=== PATIENT | male | born 1980 | race Caucasian/White ===

== ENCOUNTER 2020-04-05 18:57 | Emergency (ER) | payer OTHER, SELFPAY ==
[2020-04-05 19:13] VITALS: BP 143/83; PULSE 104; RESP 14; TEMP 36.1; O2SAT 98; BMI 40.6
--- NOTE | 2020-04-05 20:05 | XR_ITS ---
WS: [id number] LEFT ELBOW: 3 VIEW(S) TECHNIQUE: AP, oblique and lateral. HISTORY: Injury COMPARISON: None available. No acute fractures or dislocation. Enthesopathy at the Achilles tendon. No joint effusion. No soft tissue abnormality. XR/XR elbow LT min 3V* [id number] IMPRESSION: Normal LEFT elbow.
--- NOTE | 2020-04-05 20:05 | XR_ITS ---
WS: [id number] LEFT HUMERUS: 2 VIEW(S) TECHNIQUE: AP and lateral. HISTORY: Injury COMPARISON: None available. No acute fracture or dislocation. No joint or soft tissue abnormality. No foreign bodies and visualized upper thorax is unremarkable. XR/[place] [id number] IMPRESSION: Normal LEFT humerus.
--- NOTE | 2020-04-05 20:05 | XR_ITS ---
WS: [id number] LEFT SHOULDER: 3 VIEW(S) TECHNIQUE: Internal and external rotation with Y view. HISTORY: Injury COMPARISON: None available. No fracture or dislocation or soft tissue abnormality. Mild AC joint narrowing. XR/XR shoulder LT min 2V* [id number] IMPRESSION: Mild AC joint arthritis.
--- NOTE | 2020-04-05 21:10 | ED_ITS ---
HPI - Extremity Problem General: Chief complaint: Extremity Problem,Nontraumatic Stated complaint: left arm pain Time Seen by Provider: 04/05/20 20:51 History of Present Illness: HPI Narrative: Patient said he reached for chair night while holding onto the pole of the gazebo and as he fell while reaching for the chair he felt a pop in his left arm it is hurt since says he has some deformity to the muscle and has limited range of motion the arm MD Complaint: extremity pain Onset (ago): hour(s) Pain Consistency: constant Location: left and upper extremity Severity scale (1-10): 6 Quality: aching Radiation: none Relieving factors: immobilization Exacerbating factors: range of motion Associated symptoms: Deny chest pain, fever(s) or rash Review of Systems Const: Denies: fever(s), chills or body aches Eyes: Denies: change in vision or blurry vision ENMT: Denies: throat pain or nasal congestion Card: Denies: chest pain or dyspnea on exertion Resp: Denies: dyspnea, productive cough or non-productive cough GI: Denies: abdominal pain, nausea or vomiting : Denies: difficulty urinating Musc: Reports: extremity pain (Left upper arm bicep area proximal some tingling in his fingers) Skin/Breast: Denies: rash Neuro: Denies: headache(s) Psych: Denies: anxiety or depression Luc/Lymph: Denies: easy bruising [facility] ED PFSH: Social History (Updated 01/30/20 @ 13:04 by Kathleen Hemphill LPN) Smoking and tobacco status: former smoker Physical Exam Const: COMMON NORMALS: no acute distress, average body habitus and patient oriented x3 HENMT: COMMON NORMALS: normocephalic HEAD & SCALP: normal to inspection and normocephalic FACE & SINUS: normal facial exam Eye: COMMON NORMALS: conjunctivae normal GENERAL EYE: appearance normal, both eyes and all related structures CONJUNCTIVA: Yes conjunctivae normal Neck/C-Spine: COMMON NORMALS: no JVD Chest: COMMONS NORMALS: normal inspection of the chest Resp: COMMON NORMALS: normal respiratory effort and clear to auscultation bilaterally AUSCULTATION: clear to auscultation bilaterally Cardio: COMMON NORMALS: no JVD, regular rate and regular rhythm RATE: r egular rate RHYTHM: regular rhythm GI: COMMON NORMALS: Normal to inspection, nondistended, normoactive bowel sounds present Extremity: LEFT UPPER EXTREMITY: Yes upper arm (Appears to have a dimple at the distal end of his left bicep he has decreased strength pain with range of motion the left bicep does look abnormal) Neuro: COMMON NORMALS: patient oriented x3 MOTOR EXAM: Other motor observations present (Distal neuro exam is negative for any deficiencies) Course Vital Signs: Vital signs: Vital Signs Temperature 96.9 F L 04/05/20 19:13 Pulse Rate 104 H 04/05/20 19:13 Respiratory Rate 14 04/05/20 19:13 Blood Pressure 143/83 04/05/20 19:13 Pulse Oximetry 98 04/05/20 19:13 Discharge Plan Discharge Patient Disposition: Home, Self-Care Clinical Impression: Biceps tendon tear Condition: Stable Prescriptions: New tramadol 50 mg tablet 50 mg PO Q6H PRN (Reason: pain) Qty: 14 RF: 0 No Action metoprolol tartrate 50 mg tablet 50 mg PO DAILY Qty: 90 RF: 1 escitalopram oxalate 20 mg tablet 20 mg PO DAILY PRN (Reason: anxiety) Qty: 30 RF: 0 Discharge Orders: Discharge Order (Routine); Ordered 04/05/20 Ordered By: Carlos Jackson Referrals: Steven Mosqueda MD [Primary Care Provider] - Discharge Diet: Advance as tolerated Discharge Activity: Increase activity as tolerated Patient Instructions: Biceps Tendon Rupture Activity Restrictions/Additional Instructions: Follow-up with medical provider as directed. Take medications as prescribed. Return to the ER or your medical provider if condition worsens. Please read and understand discharge instructions. If any questions ask please. 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
[2020-04-05] MEDS: TRAMadol 50 mg Tablet PO (21:13)
[2020-04-05 21:18] VITALS: BP 150/84; PULSE 82; RESP 14; O2SAT 98
--- NOTE | 2020-04-07 12:59 | DCPLANNER ---
visual manager had message to schedule a follow up appointment for patient with ortho. visual manager called the ortho clinic, spoke with Rosangela, gave clinic patients information. visual manager was told that patient information would be printed and reviewed. Clinic will call case management director and patient with appointment information.
--- NOTE | 2020-04-13 07:48 | DCPLANNER ---
Patient had an appointment scheduled with ortho for 04.09.20, patient did attend the appointment.
== END 2020-04-05 21:19 | disposition home or self-care (01) ==
PROVIDERS: Emergency Provider Nurse Practitioner Family; PCP Family Medicine
DX: S46.212A Strain of muscle, fascia and tendon of other parts of biceps, left arm, initial encounter (principal); W19.XXXA Unspecified fall, initial encounter; Z87.891 Personal history of nicotine dependence
CPT/HCPCS: 12345; 73030; 73060; 73080; 99281; 99283

== ENCOUNTER 2020-04-14 06:36 | Day surgery (SDC) | payer OTHER, SELFPAY ==
[2020-04-13 10:38] VITALS: BMI 40.6
[2020-04-14] VITALS (12 sets, daily range): BP systolic 123–181; BP diastolic 77–101; PULSE 72–83; RESP 12–75; TEMP 34.1–36.3; O2SAT 88–99
--- NOTE | 2020-04-14 | XR_ITS ---
WS: [id number] XR elbow LT 2V [id number] REASON FOR EXAM: BICEP REPAIR FINDINGS: An anchor is noted in the region of the diaphysis of the radius the alignment is fairly sat isfactory. A large olecranon spur is seen. XR/XR elbow LT 2V [id number] IMPRESSION: Biceps repair with an anchor identified in the proximal radius.
--- NOTE | 2020-04-14 | SCC_ITS ---
Procedure Done: Open repair left distal biceps tendon 5.2 seconds of fluoroscopic guidance, for a cumulative dose of 0.23 mGy, was provided to Dr. Solomon by the radiology department. C-arm images of the LEFT elbow were saved for the patient's permanent record. AMELIA
[2020-04-14] MEDS: sodium chloride 0.9% 1,000 ML 30 ML IV (07:11)
--- NOTE | 2020-04-14 07:13 | ANES.PREANE2 ---
Pre-Anesthetic Assessment Pre-Anesthetic Assessment: Height/Weight: Height 1.83 m Weight 136.078 kg Temp Pulse Resp BP Pulse Ox 97 F L 72 18 145/94 99 04/14/20 06:58 04/14/20 06:58 04/14/20 06:58 04/14/20 06:58 04/14/20 06:58 Preop Diagnosis: Left distal biceps rupture Proposed Procedure: Operation Date: 04/14/20 08:15 Proposed Procedures p Left biceps tendon repair 25451 S46.212A(Left) - Abdiel Solomon MD Familial anesthetic complications: None Was Beta Venancio taken within 24 hours: Yes Last intake: Intake Last Liquid Date 04/14/20 Last Liquid Time 23:00 Last Solid Date 04/13/20 Last Solid Time 23:00 Social: Social History: No alcohol and No tobacco Exam: Pre-Anes Outpt Exam: alert, oriented x 3, clear to auscultation bilaterally and regular rate & rhythm Airway: Cervical ROM: WNL MP: 4 Dentition: Full Additional comments: large tongue and neck circumference Pulmonary: Pulmonary: Sleep apnea (bipap) CV/HEM: CV/HEM: HTN : : None reported Hepatic: Hepatic: None reported GI: GI: None reported Metabolic: Metabolic: Morbid obesity Musc/skel: Musc/skel: None reported Neuropsych: Neuropsych: None reported Anesthetic Plan: ASA status: 2 Anesthesia: General and Regional (specify below) (post op prn) Risk of > 500 ml blood loss (7ml/kg in children): No Meds/Allergies Current Medications: Current Medications Generic Name Dose Route Start Last Admin Trade Name Freq PRN Reason Stop Dose Admin Sodium Chloride 1,000 mls @ 30 ml s/hr 04/14/20 06:15 04/14/20 07:11 Sodium Chloride 0.9% IV 04/15/20 06:14 30 mls/hr .Q24H DILIP Administration PFSH Anesthesia PFSH: Social History Smoking and tobacco status: former smoker Data Anesthesia Cardiac Studies: No Data to Display
--- NOTE | 2020-04-14 07:44 | W.PM.OPSUD ---
Surgery/Procedure H&P Update DATE OF PROCEDURE: April 14, 2020 DATE H&P PERFORMED: 04/09/20 PREOP DIAGNOSIS: Left distal biceps rupture PLANNED PROCEDURE: Operation Date: 04/14/20 08:15 Proposed Procedures p Left biceps tendon repair 40210 S46.212A(Left) - Abdiel Solomon MD
--- NOTE | 2020-04-14 09:08 | P.OP_ITS ---
Operative Report Date of procedure: April 14, 2020 Pre-op Diagnosis: Left distal biceps rupture Post-op diagnosis: same Post-op Findings: Complete rupture left distal bicep Procedure Done: Open repair left distal biceps tendon Implants: [employer] Endobutton Pathology: none sent Surgeon: Abdiel Solomon Anesthesia: General Estimated blood loss (mL): 10 Tourniquet time (min): 31 Complications: None Findings: Patient had a complete rupture of his distal biceps from its insertion on the radial tube Condition: stable Disposition: PACU Procedure: The patient was taken to the operating room and given a general. They were prepped and draped in the supine position with a tourniquet on the involved arm. Timeout was performed. The tourniquet was inflated 250 mmHg. A transverse incision approximately 4 cm long was made in line with the distal flexion crease section was carried through the fascia and a superficial veins retracted. The distal biceps tendon was identified and retracted into the wound. utilizing a scalpel blade a distal 1 cm very enlarged degenerative tendon was excised. Ultratape suture was passed in a locking Krak?w fashion beginning proximally extending distally out the tendon, around the Endobutton an d back through the tendon distal proximal. The knot was secured proximally. Approximately 3 mm were left between the ends of the tendon and the Endobutton. The Endobutton was then passed the tendon through a sizing tube in the tendon measured approximately 6.5 mm. Blunt dissection was accomplished down to the radial tuberosity. A guidepin was driven from anterior is slightly proximal to distal slightly posterior with the arm in maximal supination. Fluoroscopy was used to verify position of pin. A Endobutton reamer was passed through both cortices and a 6.5 mm reamer through the anterior cortex. Endobutton sutures were then passed through the eyelet of the guide pin. In the guide pin passed through the dorsal arm. The sutures were used to shuttle the Endobutton which was felt to engage on the far cortex of the radius. Dropper fluoroscopy showed satisfactory position of the button. The tourniquet was deflated at 31 min. Heis provided with bipolar cautery. Deep tissues were closed with 3-0 Vicryl and the skin with skin reema. Sterile dressings consisting of Xeroflo, 4 x 4's, and Ross wrap were applied. Patient was placed in a hinged elbow brace locked in 60? of flexion.
--- NOTE | 2020-04-14 09:26 | SUR.PHASEI ---
0915 PT TO PACU SLEEPY AWAKES TO TOUCH THEN BACK TO SLEEP
[2020-04-14] MEDS: fentaNYL 50 mcg/mL INJ 2mL IVP (09:30)
--- NOTE | 2020-04-14 09:53 | ANES.PROC ---
Anesthesia Procedures Procedure/Date: 04/14/20 Nerve Block ^: Nerve Block 1: Main Anesthesia: general anesthesia Time Out Performed: Yes Consent: requested by attending/covering physician, from patient, risks and benefits reviewed and patient agrees to proceed Nerve block location: supraclavicular (L) Anesthesia monitors applied: pulse oximetry, BP cuff and oxygen Nerve block position: semi sitting Anesthetic Used: ropivicaine 0.5% and with decadron (4 mg) Amount of anesthesia used (mL): 25 Ultrasound used to: recognize landmarks and visualize and ID brachial plexus Nerve Stimulator Used?: No Interscalene/Femoral BLK: 4 stimuplex 21 g needle used for position and inplane approach Injection: neg aspiration of heme Patient Tolerated Procedure: well Complications: none Additional Comments: Performed due to uncontrolled post op pain
[2020-04-14] MEDS: oxyCODONE-APAP 5-325 mg Tablet 1 TAB PO (10:19)
== END 2020-04-14 10:52 | disposition home or self-care (01) ==
PROVIDERS: PCP Family Medicine; Visit Provider Orthopaedic Surgery
PROC: (CPT 23430; principal; 2020-04-14 07:55)
DX: S46.212A Strain of muscle, fascia and tendon of other parts of biceps, left arm, initial encounter (principal); W19.XXXA Unspecified fall, initial encounter; Z87.891 Personal history of nicotine dependence; G47.30 Sleep apnea, unspecified; I10 Essential (primary) hypertension; E66.01 Morbid (severe) obesity due to excess calories; Z68.41 Body mass index [BMI] 40.0-44.9, adult
CPT/HCPCS: 24342; 12345; 73070; 76000; C1713; J0330; J0690; J1100; J1580; J2001; J2405; J2704; J3010; J3490; J7030

== ENCOUNTER 2020-04-29 16:16 | Outpatient (CLI) | payer OTHER, SELFPAY | END 2020-04-29 16:17 | disposition home or self-care (01) | LOC: SPT 16:16 | PROVIDERS: PCP Family Medicine; Visit Provider Orthopaedic Surgery | DX: Z98.890 Other specified postprocedural states (principal) | CPT/HCPCS: 97760; L3761 ==

== ENCOUNTER → 2020-09-17 08:57 | Outpatient (BNVA) | payer OTHER, SELFPAY | PROVIDERS: PCP Family Medicine; Visit Provider Nurse Practitioner Family | DX: Z20.828 Contact with and (suspected) exposure to other viral communicable diseases (principal) | CPT/HCPCS: 87635 ==

== ENCOUNTER → 2021-01-14 08:51 | Outpatient (BNVA) | payer OTHER, SELFPAY | PROVIDERS: PCP Family Medicine; Visit Provider Registered Nurse | DX: I10 Essential (primary) hypertension (principal); F32.9 Major depressive disorder, single episode, unspecified; N52.9 Male erectile dysfunction, unspecified; E78.5 Hyperlipidemia, unspecified; F41.9 Anxiety disorder, unspecified; E66.01 Morbid (severe) obesity due to excess calories; Z68.41 Body mass index [BMI] 40.0-44.9, adult | CPT/HCPCS: 80053; 80061; 84402; 84403; 85025 ==

== ENCOUNTER → 2021-01-21 09:32 | Outpatient (BNVA) | payer OTHER, SELFPAY | PROVIDERS: PCP Family Medicine; Visit Provider Registered Nurse | DX: N52.9 Male erectile dysfunction, unspecified (principal) | CPT/HCPCS: 84402 ==

== ENCOUNTER → 2021-12-13 18:56 | Outpatient (BNVA) | payer OTHER, SELFPAY | PROVIDERS: PCP Registered Nurse; Visit Provider Nurse Practitioner | DX: B34.9 Viral infection, unspecified (principal); Z20.822 Contact with and (suspected) exposure to COVID-19 | CPT/HCPCS: 87635 ==

== ENCOUNTER → 2022-03-23 16:15 | Outpatient (BNVA) | payer OTHER, SELFPAY | PROVIDERS: PCP Registered Nurse; Visit Provider Registered Nurse | DX: I10 Essential (primary) hypertension (principal); R60.9 Edema, unspecified; E78.5 Hyperlipidemia, unspecified; E66.01 Morbid (severe) obesity due to excess calories; Z68.41 Body mass index [BMI] 40.0-44.9, adult | CPT/HCPCS: 80053; 80061; 83880; 85025 ==

== ENCOUNTER → 2022-03-30 09:00 | Outpatient (BNVA) | payer OTHER, SELFPAY | PROVIDERS: PCP Registered Nurse; Visit Provider Registered Nurse | DX: I10 Essential (primary) hypertension (principal); R60.9 Edema, unspecified; E78.5 Hyperlipidemia, unspecified | CPT/HCPCS: 80053; 80061; 83880; 85025 ==

== ENCOUNTER → 2022-04-16 17:36 | Outpatient (BNVA) | payer OTHER, SELFPAY | PROVIDERS: PCP Registered Nurse; Visit Provider Emergency Medicine | DX: J11.1 Influenza due to unidentified influenza virus with other respiratory manifestations (principal); B34.9 Viral infection, unspecified; Z20.822 Contact with and (suspected) exposure to COVID-19 | CPT/HCPCS: 87400; 87635; 87801 ==

== ENCOUNTER → 2022-04-21 09:12 | Outpatient (BNVA) | payer OTHER, SELFPAY | PROVIDERS: PCP Registered Nurse; Visit Provider Registered Nurse | DX: I10 Essential (primary) hypertension (principal); J01.40 Acute pansinusitis, unspecified; E87.6 Hypokalemia | CPT/HCPCS: 80053 ==

== ENCOUNTER → 2022-05-11 09:09 | Outpatient (BNVA) | payer OTHER, SELFPAY | PROVIDERS: PCP Registered Nurse; Visit Provider Registered Nurse | DX: E87.6 Hypokalemia (principal); I10 Essential (primary) hypertension; F41.1 Generalized anxiety disorder; F43.0 Acute stress reaction | CPT/HCPCS: 80053 ==

== ENCOUNTER → 2022-07-02 15:41 | Outpatient (BNVA) | payer OTHER, SELFPAY | PROVIDERS: PCP Registered Nurse; Visit Provider Registered Nurse Neonatal Intensive Care | DX: R50.9 Fever, unspecified (principal); R05.9 Cough, unspecified; E87.6 Hypokalemia; U07.1 COVID-19 | CPT/HCPCS: 87400; 87426 ==

== ENCOUNTER → 2022-12-05 14:24 | Outpatient (BNVA) | payer OTHER, SELFPAY | PROVIDERS: PCP Registered Nurse; Visit Provider Registered Nurse | DX: I10 Essential (primary) hypertension (principal) | CPT/HCPCS: 80053; 80061; 85025 ==

== ENCOUNTER → 2023-01-25 10:06 | Outpatient (BNVA) | payer OTHER, SELFPAY | PROVIDERS: PCP Registered Nurse; Visit Provider Nurse Practitioner Family | DX: J30.2 Other seasonal allergic rhinitis (principal) | CPT/HCPCS: 82785; 86003 ==

== ENCOUNTER → 2023-06-18 12:00 | Outpatient (BNVA) | payer OTHER, SELFPAY | PROVIDERS: PCP Registered Nurse; Visit Provider Registered Nurse | DX: E87.6 Hypokalemia (principal) | CPT/HCPCS: 80053 ==

== ENCOUNTER → 2023-11-16 08:18 | Outpatient (BNVA) | payer OTHER, SELFPAY | PROVIDERS: PCP Registered Nurse; Visit Provider Family Medicine Adult Medicine | DX: Z20.822 Contact with and (suspected) exposure to COVID-19 (principal); R68.83 Chills (without fever) | CPT/HCPCS: 87400; 87426 ==

== ENCOUNTER 2024-01-09 12:42 | Outpatient (CLI) | payer OTHER, SELFPAY ==
--- NOTE | 2024-01-09 12:54 | XR_ITS ---
WS: [id number] Exam: XR chest 2V* [id number] Date/Time of Exam: 01/09/2024 1:05 PM Reason For Exam: COUGH/RIB PAIN ON L SIDE/FEVER No priors. The lungs are clear and fully expanded. Normal cardiomediastinal silhouette. No pleural effusions. Mi ld spondylosis of the dorsal spine. Bony structures are unremarkable otherwise. IMPRESSION: 1. No acute cardiopulmonary finding.
== END 2024-01-09 12:43 | disposition home or self-care (01) ==
LOC: RAD 12:44
PROVIDERS: Visit Provider Nurse Practitioner Family
DX: R05.9 Cough, unspecified (principal); R07.81 Pleurodynia; R50.9 Fever, unspecified
CPT/HCPCS: 71046

== ENCOUNTER 2024-02-07 07:46 | Day surgery (SDC) | payer OTHER, SELFPAY ==
[2024-02-07 08:05] VITALS: BP 135/87; PULSE 90; RESP 18; TEMP 36.4; O2SAT 96; BMI 42.7
[2024-02-07] MEDS: sodium chloride 0.9% 1,000 ML 30 ML IV (08:17)
--- NOTE | 2024-02-07 08:18 | ANES.PREANE2 ---
Pre-Anesthetic Assessment Height/Weight: Height 1.83 m Weight 142.882 kg Temp Pulse Resp BP Pulse Ox O2 Del Method 97.5 F L 90 18 135/87 96 Room Air 02/07/24 08:05 02/07/24 08:05 02/07/24 08:05 02/07/24 08:05 02/07/24 08:05 02/07/24 08:05 Operation Date: 02/07/24 08:50 Proposed Procedures p 70442 colon G0121 screen colon a risk Z12.11(Not Applicable) - Phoenix Gomes MD Familial anesthetic complications: None Was Beta Venancio taken within 24 hours: N/A Was Clonidine taken within 24 hours: N/A Last intake: Intake Last Liquid Date 02/06/24 Last Liquid Time 22:00 Last Solid Date 02/05/24 Last Solid Time 13:00 Social No alcohol and No tobacco Exam alert, oriented x 3, clear to auscultation bilaterally and regular rate & rhythm Airway Mallampati: Class III Dentition: full Pulmonary Asthma (bronchitis) and Sleep Apnea CV/HEM Hypertension Metabolic Hyperlipidemia and Morbid Obesity Anesthetic Plan ASA status: 3 Anesthesia: MAC Risk of > 500 ml blood loss (7ml/kg in children): No Medications/Allergies Home Medications Medication Instructions Recorded Confirmed Last Taken Type ibuprofen 800 mg tablet 800 mg PO Q8H PRN Pain 04/13/20 02/05/24 02/04/24 History sildenafil 50 mg tablet (Viagra) 50 - 100 mg (1 - 2 x 50 mg) PO 01/14/21 02/07/24 2 Months Ago Rx DAILY PRN sexual activity #10 tabs ~12/09/23 naproxen sodium 220 mg tablet 220 mg PO BID PRN Pain 02/02/22 02/07/24 02/04/24 History (Aleve) fluticasone propionate 50 1 spray intranasal DAILY PRN nasal 11/30/22 02/05/24 02/06/24 Rx mcg/actuation nasal congestion #16 grams spray,suspension (Flonase Allergy Relief) azelastine 137 mcg (0.1 %) nasal 2 spray intranasal BID congestion 11/16/23 02/05/24 02/06/24 Rx spray aerosol #30 mL loratadine 10 mg tablet 10 mg PO DAILY PRN allergy 11/16/23 02/07/24 1 Month Ago Rx symptoms #30 tabs ~01/09/24 gywjyujani-lcoipshrupdzc-wxrthghc 1 cap PO Q6H PRN headache #30 caps 11/22/23 02/07/24 1 Month Ago Rx 50 mg-300 mg-40 mg capsule ~01/09/24 (Fioricet) hydrochlorothiazide 25 mg tablet 25 mg PO BID 02/05/24 02/05/24 02/06/24 History metoprolol tartrate 50 mg tablet 50 mg PO DAILY 02/05/24 02/05/24 02/06/24 History potassium chloride 10 mEq 1 meq PO DAILY 02/05/24 02/05/24 02/06/24 History tablet,extended release(part/cryst) atorvastatin 20 mg tablet 20 mg PO DAILY 02/07/24 02/07/24 02/06/24 History buspirone 10 mg tablet 10 mg PO BID 02/07/24 02/07/24 02/06/24 History escitalopram oxalate 20 mg tablet 20 mg PO DAILY 02/07/24 02/07/24 02/06/24 History lisinopril 20 mg tablet 20 mg PO DAILY 02/07/24 02/07/24 02/05/24 History Allergies Allergy/AdvReac Type Severity Reaction Status Date / Time sugar free Allergy headaches Uncoded 01/08/24 15:03 Current Medications Generic Name Dose Route Start Last Admin Trade Name Freq PRN Reason Stop Dose Admin Sodium Chloride 1,000 mls @ 30 mls/hr 02/07/24 08:00 02/07/24 08:17 Sodium Chloride 0.9% IV 30 mls/hr .Q24H DILIP Administration PFSH Anesthesia Medical History URI (upper respiratory infection) Chills Biceps muscle tear Dependent edema MELISSA (obstructive sleep apnea) Hypertension Depression Family History Mother Cancer liver Brother Aneurysm Social History Smoking and tobacco/nicotine status: former use of tobacco/nicotine (2011) Alcohol intake: current Alcohol intake frequency: few times a month Substance/Drug Use: never Adopted: No Caregiver/support person: No Lives independently: No Sexually active: Yes Do you think of yourself as: Straight/Heterosexual Current gender identity: Male Data Anesthesia Cardiac Studies: No Data to Display
--- NOTE | 2024-02-07 08:26 | W.PM.OPSFHP ---
Same Day Surgery H&P Indication for Procedure/HPI DATE OF PROCEDURE: February 07, 2024 CHIEF COMPLAINT/INDICATIONFOR SURGICAL PROCEDURE: encounter for screening colonoscopy PREOP DIAGNOSIS: encounter for screening colonoscopy PLANNED PROCEDURE: Operation Date: 02/07/24 08:50 Proposed Procedures p 18988 colon G0121 screen colon a risk Z12.11(Not Applicable) - Phoenix Gomes MD Medications/Allergies* Home Medications Medication Instructions Recorded Confirmed Type ibuprofen 800 mg tablet 800 mg PO Q8H PRN Pain 04/13/20 02/05/24 History naproxen sodium 220 mg tablet 220 mg PO BID PRN Pain 02/02/22 02/07/24 History (Aleve) hydrochlorothiazide 25 mg tablet 25 mg PO BID 02/05/24 02/05/24 History metoprolol tartrate 50 mg tablet 50 mg PO DAILY 02/05/24 02/05/24 History potassium chloride 10 mEq 1 meq PO DAILY 02/05/24 02/05/24 History tablet,extended release(part/cryst) atorvastatin 20 mg tablet 20 mg PO DAILY 02/07/24 02/07/24 History buspirone 10 mg tablet 10 mg PO BID 02/07/24 02/07/24 History escitalopram oxalate 20 mg tablet 20 mg PO DAILY 02/07/24 02/07/24 History lisinopril 20 mg tablet 20 mg PO DAILY 02/07/24 02/07/24 History Allergies/Adverse Reactions Allergy/AdvReac Type Severity Reaction Status Date / Time sugar free Allergy headaches Uncoded 01/08/24 15:03 Current Medications: Generic Name Dose Route Start Last Admin Trade Name Freq PRN Reason Stop Dose Admin Sodium Chloride 1,000 mls @ 30 mls/hr 02/07/24 08:00 02/07/24 08:17 Sodium Chloride 0.9% IV 30 mls/hr .Q24H DILIP Administration Pertinent History/Comorbid Conditions* Medical History (Updated 11/28/23 @ 16:59 by Maycol Tello MD) URI (upper respiratory infection) Chills Biceps muscle tear Dependent edema MELISSA (obstructive sleep apnea) Hypertension Depression Family History (Updated 12/04/23 @ 08:46 by HECTOR Noyola) Aneurysm Brother Cancer Mother liver Social History Smoking and tobacco/nicotine status: former use of tobacco/nicotine (2011) Alcohol intake: current Alcohol intake frequency: few times a month Substance/Drug Use: never Adopted: No Caregiver/support person: No Lives independently: No Sexually active: Yes Do you think of yourself as: Straight/Heterosexual Current gender identity: Male Pertinent Exam Findings alert, oriented x 3 and clear to auscultation bilaterally Recommendations Surgery/Procedure today Coding Level of Care Code Acute Code for Joao Metzger
[2024-02-07 09:29] VITALS: BP 122/65; PULSE 96; RESP 12; TEMP 36.3; O2SAT 97
[2024-02-07 09:43] VITALS: BP 118/74; PULSE 69; RESP 16; O2SAT 95
--- NOTE | 2024-02-07 10:00 | ANE.PACU2 ---
Inpatient post-anesthesia follow up: Airway intact: Yes Vital signs: Temperature 97.3 F Pulse Rate 69 Respiratory Rate 16 Blood Pressure 118/74 Pulse Oximetry 95 Oxygen Delivery Me thod Room Air Oxygen Flow Rate Fraction of Inspir ed Oxygen Hydration adequate: Yes Nausea and vomiting: No Pain level: 1 Mental status: Baseline
== END 2024-02-07 10:00 | disposition home or self-care (01) ==
PROVIDERS: PCP Nurse Practitioner Family; Visit Provider Surgery
PROC: 0DJD8ZZ Inspection of Lower Intestinal Tract, Via Natural or Artificial Opening Endoscopic (ICD-10-PCS; CPT 45378; principal; 2024-02-07 08:50)
DX: Z12.11 Encounter for screening for malignant neoplasm of colon (principal); G47.33 Obstructive sleep apnea (adult) (pediatric); I10 Essential (primary) hypertension; Z87.891 Personal history of nicotine dependence; D12.0 Benign neoplasm of cecum; D12.5 Benign neoplasm of sigmoid colon; K62.1 Rectal polyp; E78.5 Hyperlipidemia, unspecified; E66.01 Morbid (severe) obesity due to excess calories; Z68.41 Body mass index [BMI] 40.0-44.9, adult
CPT/HCPCS: 45380; 45385; 88305; J2704; J7030

== ENCOUNTER → 2024-05-28 14:05 | Outpatient (BNVA) | payer OTHER, SELFPAY | PROVIDERS: PCP Registered Nurse | DX: R39.9 Unspecified symptoms and signs involving the genitourinary system (principal) | CPT/HCPCS: 81000 ==

== ENCOUNTER 2024-06-11 09:31 | Emergency (ER) | payer OTHER, SELFPAY ==
--- NOTE | 2024-06-11 09:35 | CT_ITS ---
WS: [id number] CT ABDOMEN PELVIS TECHNIQUE: Noncontrast CT of the abdomen and pelvis with coronal and sagittal reformatted images. CLINICAL INFORMATION: flank pain COMPARISON: 2018 DLP: 1795.[address] scans at [facility] use at least one of these dose optimization techniques: automated e xposure control; mA and/or kV adjustment per patient size (includes targeted exams where dose is matc hed to clinical indication); or iterative reconstruction. FINDINGS: Normal noncontrast liver. Small esophageal hernia. Normal noncontrast spleen. Lung bases are well aer ated. Normal noncontrast gallbladder. Stomach is decompressed. Noncontrast pancreas appears normal. N ormal caliber noncontrast aorta. Adrenal glands are normal. No hydronephrosis in either kidney. No ob structing renal or ureteral calculi. Both ureters are decompressed. No inflammatory stranding about e ither kidney. Bladder is normal in appearance. Normal sigmoid colon. Evidence of prior appendectomy. Normal ileocecal valve. 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 This can be followed up with MRI on an elective basis. CT/CT kidney stone [id number] IMPRESSION: 1. No hydronephrosis in either kidney. No obstructing renal or ureteral calcul i. No perinephric stranding or edema. 2. Evidence of prior appendectomy. 3. 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 This cou ld be further evaluated with MRI on elective basis. 4. Evidence of prior postoperative changes RIGHT inguinal hernia repair. No re current hernia. 5. Small esophageal hiatal hernia. 6. No other acute findings.
[2024-06-11 09:45] VITALS: BP 129/84; PULSE 79; RESP 18; TEMP 36.6; O2SAT 99
--- NOTE | 2024-06-11 09:49 | ED_ITS ---
HPI - Abdominal Pain 2 General: Chief Complaint: Abdominal Pain Stated Complaint: sent from urgent care, back pain Time Seen by Provider: 06/11/24 09:33 History of Present Illness: 43-year-old male presents emergency room with left-sided back and flank pain. He was initially thought to have a kidney stone treated hydrocodone tamsulosin alone. He was seen today again in the urgent care seem to be worsening. He describes the pain is radiating from his left flank and the back and around towards the front he denies any dysuria urgency or frequency no hematuria no fever sweats or chills. No vomiting or diarrhea no chest pain or shortness of breath. He states when he tries to urinate he has worsening pain in that area but the urination itself does not seem to cause any burning. He has not noticed anything that exacerbates or relieves it. No rash no fever sweats or chills no recent tick bites he does not have any myalgias anywhere else. He does report that he has numbness that radiates down into his right leg that is been ongoing for some time. He does not have any fecal incontinence or urinary retention Associated Symptoms: Denies chills, dysuria and fever(s) Review of Systems 2 Const: Denies: fever(s) or chills Card: Denies: chest pain Resp: Denies: dyspnea GI: Reports: abdominal pain : Denies: dysuria, urinary frequency or urinary urgency Musc: Denies: neck pain or back pain Skin/Breast: Denies: rash PFSH ED 2 PFSH: Medical History URI (upper respiratory infection) Chills Biceps muscle tear Dependent edema MELISSA (obstructive sleep apnea) Hypertension Depression Family History Mother Cancer liver Brother Aneurysm Social History Smoking and tobacco/nicotine status: former use of tobacco/nicotine Quit status (tobacco/nicotine): has quit using Second hand smoke exposure: No Alcohol intake: current Alcohol intake frequency: few times a month Substance/Drug Use: never Adopted: No Caregiver/support person: No Lives independently: No Sexually active: Yes Do you think of yourself as: Straight/Heterosexual Current gender identity: Male Physical Exam 2 Const: GENERAL APPEARANCE: cooperative and comfortable O RIENTATION/CONSCIOUSNESS: Yes awake, Yes oriented to person, Yes oriented to place and Yes oriented to time HENMT: COMMON NORMALS: normocephalic, atraumatic and hearing grossly normal bilaterally HEAD & SCALP: normocephalic and atraumatic Resp: COMMON NORMALS: normal respiratory effort, No retractions, No use of accessory muscles and clear to auscultation bilaterally AUSCULTATION: clear to auscultation bilaterally Cardio: COMMON NORMALS: regular rate, regular rhythm and No murmurs present (Cardio) RATE: regular rate RHYTHM: regular rhythm GI: COMMON NORMALS: Soft to palpation and No hepatosplenomegaly present A USCULTATION: Yes normoactive bowel sounds PALPATION: Yes Soft to palpation, No Tenderness to palpation present (GI), No Guarding due to palpation present (GI) and Yes No hepatosplenomegaly present Extremity: COMMON NORMALS: normal to inspection, capillary refill normal, no clubbing, cyanosis or edema, no calf tenderness and no pedal edema Neuro: SENSORIUM/ORIENTATION: Yes oriented to person, Yes oriented to place and Yes oriented to time Skin: COMMON NORMALS: no rashes or lesions noted GENERAL SKIN EXAM: no rashes or lesions noted Course 2 Vital Signs: Vital signs: Vital Signs Temperature 97.8 F 06/11/24 09:45 Pulse Rate 79 06/11/24 09:45 Respiratory Rate 18 06/11/24 09:45 Blood Pressure 129/84 06/11/24 09:45 Pulse Oximetry 99 06/11/24 09:45 Oxygen Delivery Me thod Room Air 06/11/24 09:45 MDM - Abdominal Pain Medical Decision Making CT is negative for stone no leukocytosis urine does not show any acute fracture on the CT that interestingly does show some lumbar stenosis. Suspect he may have a nerve impingement that may be causing this pain. Will put him on steroid taper given hydrocodone to use as needed diclofenac as well as tizanidine have him follow-up with his primary care doctor may need to have MRI of his thoracic and lumbar spine. Medical Records I reviewed the patient's medical records. Lab Data I reviewed the patient's lab results. 06/11/24 09:56 06/11/24 09:56 Labs/Radiology: Radiology Impressions Abdomen/Pelvis CT 06/11/24 09:35 IMPRESSION: 1. No hydronephrosis in either kidney. No obstructing renal or ureteral calculi. No perinephric stranding or edema. 2. Evidence of prior appendectomy. 3. 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 This could be further evaluated with MRI on elective basis. 4. Evidence of prior postoperative changes RIGHT inguinal hernia repair. No recurrent hernia. 5. Small esophageal hiatal hernia. 6. No other acute findings. Laboratory Results WBC 9.66 10^3/uL (3.29-11.43) 06/11/24 09:56 RBC 5.02 10^6/uL (3.85-5.65) 06/11/24 09:56 Hgb 15.00 g/dL (11.27-16.99) 06/11/24 09:56 Hct 44.1 % (37-53) 06/11/24 09:56 MCV 87.8 fl (82-101) 06/11/24 09:56 MCH 29.9 pg (27-33) 06/11/24 09:56 MCHC 34.0 g/dL (30-55) 06/11/24 09:56 RDW 12.9 % (12.1-15.1) 06/11/24 09:56 Plt Count 254 10^3/cmm (157-399) 06/11/24 09:56 MPV 8.8 fL (7.4-10.4) 06/11/24 09:56 Neut % (Auto) 63.5 % 06/11/24 09:56 Lymph % (Auto) 22.7 % 06/11/24 09:56 [place] % (Auto) 9.8 % 06/11/24 09:56 Eos % (Auto) 2.4 % 06/11/24 09:56 Baso % (Auto) 0.9 % 06/11/24 09:56 Neut # (Auto) 6.13 10^3/uL (1.8-7.7) 06/11/24 09:56 Lymph # (Auto) 2.2 10^3/uL (0.8-4.8) 06/11/24 09:56 [place] # (Auto) 1.0 10^3/uL (0.2-0.9) H 06/11/24 09:56 Eos # (Auto) 0.2 10^3/uL (0.0-0.8) 06/11/24 09:56 Baso # (Auto) 0.1 10^3/uL (0.0-0.1) 06/11/24 09:56 Nucleated RBC % (auto) 0 % 06/11/24 09:56 Nucleated RBCs # 0.0 /100WBC 06/11/24 09:56 Sodium 139 mmol/L (136-145) 06/11/24 09:56 Potassium 4.2 mmol/L (3.5-5.1) 06/11/24 09:56 Chloride 105 mmol/L (98-107) 06/11/24 09:56 Carbon Dioxide 23 mmol/L (22-29) 06/11/24 09:56 Anion Gap 15.2 (5-19) 06/11/24 09:56 BUN 19 mg/dL (6-20) 06/11/24 09:56 Creatinine 1.1 mg/dL (0.7-1.2) 06/11/24 09:56 GFR Calculation 72.4 mL/min (90-130) L 06/11/24 09:56 Glucose 98 mg/dL (65-115) 06/11/24 09:56 Calculated Osmolality 290 mOsm/kg (285-295) 06/11/24 09:56 Calcium 9.8 mg/dL (8.5-10.5) 06/11/24 09:56 Total Bilirubin 0.5 mg/dL (0.15-1.2) 06/11/24 09:56 AST 35 U/L (0-40) 06/11/24 09:56 ALT 53 U/L (0-41) H 06/11/24 09:56 Alkaline Phosphatase 99 U/L (40-130) 06/11/24 09:56 Total Protein 7.5 g/dL (6.6-8.7) 06/11/24 09:56 Albumin 4.4 g/dL (3.5-5.2) 06/11/24 09:56 Globulin 3.1 g/dL (1.3-4.6) 06/11/24 09:56 Urine Color Yellow (Yellow) 06/11/24 12:15 Urine Appearance Clear (CLEAR) 06/11/24 12:15 Urine pH 6.0 (5-7) 06/11/24 12:15 Ur Specific [place] 1.017 (1.005-1.030) 06/11/24 12:15 Urine Protein Negative (Negative) 06/11/24 12:15 Urine Glucose (UA) Negative (Normal) 06/11/24 12:15 Urine Ketones Negative (Negative) 06/11/24 12:15 Urine Blood Negative (Negative) 06/11/24 12:15 Urine Nitrate Negative (Negative) 06/11/24 12:15 Urine Bilirubin Negative (Negative) 06/11/24 12:15 Urine Urobilinogen 1.0 mg/dL (Negative) 06/11/24 12:15 Ur Leukocyte Esterase Negative (Negative) 06/11/24 12:15 Amorphous Sediment Not Reportable 06/11/24 12:15 All radiology interpretation(s) finalized by discharge Discharge Plan Discharge Patient Disposition: Home Clinical Impression: Abdominal pain, Lumbar stenosis Condition: Stable Prescriptions: New tizanidine 4 mg tablet 4 mg PO Q6H PRN (Reason: muscle spasticity) Qty: 20 0RF Rx Instructions: do not exceed 3 doses per 24 hrs hydrocodone-acetaminophen 5-325 mg tablet 1 tab PO Q6H PRN (Reason: pain) Qty: 15 0RF prednisone 20 mg tablet 20 mg PO TID Qty: 15 0RF Rx Instructions: 1 p.o. 3 times daily x3 days, 1 p.o. twice daily x2 days, 1 p.o. daily x2 days diclofenac sodium 75 mg tablet,delayed release (DR/EC) 75 mg PO Q12H PRN (Reason: pain) Qty: 20 0RF Discontinued ketorolac 10 mg tablet 10 mg PO Q6H PRN (Reason: Pain) No Action sildenafil [Viagra] 50 mg tablet 50 - 100 mg PO DAILY PRN (Reason: sexual activity) Qty: 10 3RF Rx Instructions: administer 30 minutes to 4 hours before activity 340B tamsulosin [Flomax] 0.4 mg capsule 0.4 mg PO DAILY Qty: 30 0RF atorvastatin 20 mg tablet 20 mg PO DAILY Qty: 90 0RF buspirone 10 mg tablet 10 mg PO BID Qty: 180 0RF fluticasone propionate [Flonase Allergy Relief] 50 mcg/actuation spray,suspension 1 spray intranasal DAILY PRN (Reason: nasal congestion) Qty: 16 0RF lisinopril 20 mg tablet 20 mg PO DAILY Qty: 90 0RF azelastine 137 mcg (0.1 %) aerosol,spray 2 spray intranasal BID Qty: 30 0RF metoprolol tartrate 50 mg tablet 50 mg PO DAILY hydrochlorothiazide 25 mg tablet 25 mg PO BID escitalopram oxalate 20 mg tablet 20 mg PO DAILY potassium chloride 10 mEq tablet,ER particles/crystals 10 meq PO DAILY Discharge Orders: Discharge ED (Routine); Ordered 06/11/24 Ordered By: Darrin Culp Referrals: Pebbles Salinas, YOU [Primary Care Provider] - Discharge Diet: Usual diet Discharge Activity: Limit activity as instructed Patient Instructions: Abdominal Pain (ED), Opioid Safety, Pain Management Activity Restrictions/Additional Instructions: Thank you for choosing [facility] for your healthcare needs today. It is very important that you follow up as instructed or that you return to the Emergency Department should you have concerns or if your condition changes or worsens in any way. You were seen today with complaint of abdominal pain. CT of your abdomen was normal there is no sign of kidney stones urine was also normal. Suspect this may be secondary to a nerve impingement there is some stenosis in your low back. You are given steroids to use to help with the discomfort as well as diclofenac hydrocodone and tizanidine. You should follow-up with your primary care doctor to be reevaluated you may need to have advanced imaging such as an MRI of your lumbar and thoracic spines. Coding Level of Care Code ED Data Entry Technician for Joao Metzger
[2024-06-11 10:04] LABS: Basophils # 0.1 10^3/uL (0.0-0.1); Basophils % 0.9 %; Eosinophils # 0.2 10^3/uL (0.0-0.8); Eosinophils % 2.4 %; Hematocrit 44.1 % (37-53); Lymphocytes # 2.2 10^3/uL (0.8-4.8); Lymphocytes % 22.7 %; Mean Corpuscular Hemoglobin 29.9 pg (27-33); Mean Corpuscular Volume 87.8 fl (82-101); Mean Platelet Volume 8.8 fL (7.4-10.4); Monocytes % 9.8 %; Neutrophils # 6.13 10^3/uL (1.8-7.7); Neutrophils % 63.5 %; Nucleated Red Blood Cells % 0 %; Platelet Count 254 10^3/cmm (157-399); Red Blood Count 5.02 10^6/uL (3.85-5.65); Red Cell Distribution Width 12.9 % (12.1-15.1); White Blood Count 9.66 10^3/uL (3.29-11.43)
[2024-06-11 10:28] LABS: Alanine Aminotransferase 53 U/L (0-41); Albumin Level 4.4 g/dL (3.5-5.2); Alkaline Phosphatase 99 U/L (40-130); Anion Gap 15.2 (5-19); Aspartate Amino Transferase 35 U/L (0-40); Blood Urea Nitrogen 19 mg/dL (6-20); Calcium 9.8 mg/dL (8.5-10.5); Carbon Dioxide 23 mmol/L (22-29); Chloride 105 mmol/L (98-107); Globulin 3.1 g/dL (1.3-4.6); Glomerular Filtration Rate 72.4 mL/min (90-130); Glucose 98 mg/dL (65-115); Osmolality Calculated 290 mOsm/kg (285-295); Potassium 4.2 mmol/L (3.5-5.1); Sodium 139 mmol/L (136-145); Total Bilirubin 0.5 mg/dL (0.15-1.2); Total Protein 7.5 g/dL (6.6-8.7)
[2024-06-11 12:20] LABS: Charge for UA Resulting for Rev
[2024-06-11 12:22] LABS: Bilirubin Urine Negative (Negative); Blood Urine Negative (Negative); Glucose Urine UA Negative (Normal); Ketones Urine Negative (Negative); Leukocyte Esterase Urine Negative (Negative); Nitrate Urine Negative (Negative); Protein Urine Negative (Negative); Specific Gravity, Urine 1.017 (1.005-1.030); Urine Appearance Clear (CLEAR); Urine Color Yellow (Yellow)
[2024-06-11] MEDS: dexamethasone 10 mg/mL INJ IM (13:39)
== END 2024-06-11 13:49 | disposition home or self-care (01) ==
PROVIDERS: Emergency Provider Family Medicine; PCP Registered Nurse
DX: M48.061 Spinal stenosis, lumbar region without neurogenic claudication (principal); R10.9 Unspecified abdominal pain; Z87.891 Personal history of nicotine dependence; I10 Essential (primary) hypertension
CPT/HCPCS: 36415; 74176; 80053; 81000; 81003; 81015; 85025; 96372; 99284; J1100

== ENCOUNTER 2024-08-05 10:39 | Outpatient (CLI) | payer OTHER, SELFPAY ==
--- NOTE | 2024-08-05 11:00 | MR_ITS ---
WS: [id number] MRI LUMBAR SPINE NONCONTRAST HISTORY: M48.061 - Spinal stenosis, lumbar region without neurogen... COMPARISON: CT 06/11/2024 TECHNIQUE: Sagittal and axial multisequence imaging is submitted. Mild increase in the lumbar lordosis. Study is compromised by body habitus. Disc spaces and vertebral body heights are well-preserved. Conus terminates normally at L1. L1-L2: Bilateral facet joint arthritis, RIGHT greater than LEFT. No stenosis. L2-L3: Bilateral facet joint arthritis and ligamentum flavum hypertrophy. Mild bilateral foraminal st enosis. L3-L4: Mild annular disc bulging encroaching upon the ventral thecal sac and subarticular recesses. M ild central and subarticular recess stenosis. Moderate bilateral foraminal stenosis and encroachment upon the exiting L3 nerve roots. L4-L5: Mild annular disc bulging with a central disc protrusion. Deformity the ventral thecal sac and disc encroachment into the subarticular recesses. Moderate bilateral facet joint arthropathy. Modera te central, bilateral subarticular recess and foraminal stenosis. Most significant disc contact and d isplacement is on the traversing L5 nerve roots. L5-S1: Mild annular disc bulging and facet arthritis. Paravertebral soft tissues are normal. MR/MR lumbar spine wo con* [id number] IMPRESSION: 1. L4-5: Moderate central, bilateral subarticular recess and foraminal stenosi s due to disc protrusion, osteophytes and facet arthropathy. There most signifi cant contact on the traversing L5 nerve roots. 2. L3-4: Moderate bilateral foraminal stenosis with encroachment upon the exit ing L3 nerve roots. Mild central and subarticular recess stenosis. 3. L2-3: Mild bilateral foraminal stenosis.
== END 2024-08-05 10:40 | disposition home or self-care (01) ==
LOC: RAD 10:40
PROVIDERS: PCP Registered Nurse; Visit Provider Registered Nurse
DX: M48.061 Spinal stenosis, lumbar region without neurogenic claudication (principal); M40.56 Lordosis, unspecified, lumbar region; M47.896 Other spondylosis, lumbar region; M99.63 Osseous and subluxation stenosis of intervertebral foramina of lumbar region
CPT/HCPCS: 72148

== ENCOUNTER → 2024-08-14 14:28 | Outpatient (BNVA) | payer OTHER, SELFPAY | PROVIDERS: PCP Registered Nurse; Visit Provider Orthopaedic Surgery | DX: M54.9 Dorsalgia, unspecified (principal) | CPT/HCPCS: 72110 ==

== ENCOUNTER 2024-09-23 14:35 | Outpatient (RCR) | payer OTHER, SELFPAY | END 2024-10-11 23:59 | disposition home or self-care (01) | LOC: SPT 14:35 | PROVIDERS: Visit Provider Orthopaedic Surgery | DX: M54.9 Dorsalgia, unspecified (principal); G89.29 Other chronic pain | CPT/HCPCS: 97110; 97161 ==

== ENCOUNTER 2024-10-12 06:00 | Outpatient (RCR) | payer OTHER, SELFPAY | END 2024-10-23 23:59 | disposition home or self-care (01) | LOC: SPT 06:00 | PROVIDERS: Visit Provider Orthopaedic Surgery | DX: M54.9 Dorsalgia, unspecified (principal); G89.29 Other chronic pain | CPT/HCPCS: 97110; G0283 ==

== ENCOUNTER → 2025-01-18 16:26 | Outpatient (BNVA) | payer OTHER, SELFPAY | PROVIDERS: PCP Registered Nurse | DX: R50.9 Fever, unspecified (principal) | CPT/HCPCS: 87400 ==

== ENCOUNTER → 2025-08-07 11:15 | Outpatient (BNVA) | payer OTHER, SELFPAY | PROVIDERS: PCP Registered Nurse; Visit Provider Registered Nurse | DX: Z51.81 Encounter for therapeutic drug level monitoring (principal); Z79.1 Long term (current) use of non-steroidal anti-inflammatories (NSAID) | CPT/HCPCS: 80053 ==